=== PATIENT | male | born 1995 | race Caucasian/White ===

== ENCOUNTER 2016-07-28 11:31 | Inpatient (IN) | payer BC, OTHER ==
[2016-07-28 11:45] VITALS: BMI 24.2
--- NOTE | 2016-07-28 13:15 | HP ---
CIWA Score - CIWA Score Nausea/Vomitin-Mild Nausea/No Vomiting Muscle Tremors: 4-Moderate,w/Arms Extend Anxiety: 4-Mod. Anxious/Guarded Agitation: 4-Moderately Restless Paroxysmal Sweats: 3 Orientation: 0-Oriented Tacttile Disturbances: 1-Very Mild Itch/Numbness Auditory Disturbances: 0-None Visual Disturbances: 0-None Headache: 0-None Present CIWA-Ar Total Score: 17 Admission ROS BHS - HPI Chief Complaint: WITHDRAWAL SX. Allergies/Adverse Reactions: Allergies Allergy/AdvReac Type Severity Reaction Status Date / Time No Known Drug Allergies Allergy Verified 07/28/16 12:10 pollen extracts Allergy Verified 07/28/16 12:09 cats Allergy Uncoded 07/28/16 12:10 History of Present Illness: 21 Y/O MAN WITH HX. OF DRUG & ALCOHOL DEPENDENCE IS ADMITTED FOR DETOX. PT. DENIES PREVIOUS DETOX,HE WAS IN REHAB AT [facility] X 2. PT. DENIES SOBRIETY. Exam Limitations: No Limitations - Ebola screening Have you traveled outside of the country in the last 21 days: No Have you had contact with anyone from an Ebola affected area: No Have you been sick,other than usual withdrawal symptoms: No Do you have a fever: No - Review of Systems Constitutional: Diaphoresis EENT: reports: No Symptoms Reported Respiratory: reports: No Symptoms reported Cardiac: reports: No Symptoms Reported GI: reports: Diarrhea, Nausea, Abdominal cramping : reports: Frequency Musculoskeletal: reports: No Symptoms Reported Integumentary: reports: Sweating Neuro: reports: Tremors Endocrine: reports: No Symptoms Reported Hematology: reports: No Symptoms Reported Psychiatric: reports: No Sypmtoms Reported Other Systems: Reviewed and Negative Patient History - Patient Medical History Hx Anemia: No Hx Asthma: No Hx Chronic Obstructive Pulmonary Disease (COPD): No Hx Cancer: No Hx Cardiac Disorders: No Hx Hypertension: No Hx Hypercholesterolemia: No Hx Pacemaker: No HX Cerebrovascular Accident: No Hx Seizures: No Hx Dementia: No Hx Diabetes: No Hx Gastrointestinal Disorders: No Hx Liver Disease: No Hx Genitourinary Disorders: No Hx Sexually Transmitted Disorders: No Hx Renal Disease (ESRD): No Hx Thyroid Disease: No Hx Human Immunodeficiency Virus (HIV): No Hx Hepatitis C: No Hx Depression: Yes (LEXAPRO) Hx Suicide Attempt: No Hx Bipolar Disorder: No Hx Schizophrenia: No - Patient Surgical History Past Surgical History: Yes Hx Orthopedic Surgery: Yes (fx lt wrist 2015) Anesthesia Reaction: No - PPD History Previous Implant?: Yes Documented Results: Negative w/o proof Implanted On Prior [facility] Admission?: No PPD to be Administered?: Yes - Smoking Cessation Smoking history: Current some day smoker Have you smoked in the past 12 months: Yes Hx Chewing Tobacco Use: No Initiated information on smoking cessation: Yes 'Breaking Loose' booklet given: 07/28/16 - Substance & Tx. History Hx Alcohol Use: Yes Hx Substance Use: Yes Substance Use Type: Alcohol, Tranquilizers Hx Substance Use Treatment: Yes (REHAB) - Substances Abused Alcohol Route: Oral Frequency: Daily Amount used: vodka(750ml)/yo reyesels(1liter) Age of first use: 18 Date of Last Use: 08/27/15 Alprazolam (Xanax) Route: Oral Frequency: Daily Amount used: 6-8 mg Age of first use: 18 Date of Last Use: 07/28/16 Family Disease History - Family Disease History Family Disease History: CA: Grandparent (LUNG), Other: Mother (ALCOHOL) Admission Physical Exam [facility] - Vital Signs Vital Signs: Vital Signs - 24 hr 07/28/16 11:43 Temperature 96.4 F L Pulse Rate 84 Respiratory 18 Rate Blood Pressure 142/80 - Physical General Appearance: Yes: Tremorous, Sweating, Anxious HEENTM: Yes: Within Normal Limits Respiratory: Yes: Chest Non-Tender, Lungs Clear, Normal Breath Sounds Neck: Yes: Supple Breast: Yes: Breast Exam Deferred Cardiology: Yes: Regular Rhythm, Regular Rate, S1, S2 Abdominal: Yes: Normal Bowel Sounds, Non Tender, Flat, Soft Genitourinary: Yes: Frequency Back: Yes: Within Normal Limits Musculoskeletal: Yes: Within Normal Limits Extremities: Yes: Tremors Neurological: Yes: Fully Oriented, Alert Integumentary: Yes: Diaphoresis Lymphatic: Yes: Within Normal Limits - Diagnostic (1) Sedative, hypnotic or anxiolytic dependence with withdrawal, uncomplicated Current Visit: Yes Status: Acute (2) Alcohol dependence with uncomplicated withdrawal Current Visit: Yes Status: Acute Cleared for Admission [facility] - Detox or Rehab [facility] Level of Care: Medically Managed Detox Regimen/Protocol: Librium [facility] Breath Alcohol Content Breath Alcohol Content: 0 Urine Drug Screen - Results Drug Screen Negative: No Urine Drug Screen Results: BZO-Benzodiazepines
[2016-07-28] MEDS ORDERED: MENTHOL/PHENOL 1 EACH UD MM PRN (13:24)
[2016-07-28] MEDS ORDERED: NICOTINE POLACRILEX 2 MG GUM BC PRN (13:24)
[2016-07-28] MEDS ORDERED: LOPERAMIDE HCL 2 MG CAPSULE PO PRN (13:24)
[2016-07-28] MEDS ORDERED: hydrOXYzine PAMOATE 50 MG CAPSULE (FP) PO PRN (13:24)
[2016-07-28] MEDS ORDERED: chlordiazePOXIDE HCL 25 MG CAPSULE PO ONE (13:24)
[2016-07-28] MEDS ORDERED: MAGNESIUM CITRATE 300 ML BOTTLE PO PRN (13:24)
[2016-07-28] MEDS ORDERED: IBUPROFEN 400 MG TABLET (FP) PO PRN (13:24)
[2016-07-28] MEDS ORDERED: MAGNESIUM HYDROX 2400MG/30ML ORAL SUSPENSION 30 ML CUP PO PRN (13:24)
[2016-07-28] MEDS ORDERED: P-EPHED 60MG/TRIPROLIDI 2.5MG TABLET PO PRN (13:24)
[2016-07-28] MEDS ORDERED: diphenhydrAMINE HCL 50 MG CAPSULE PO PRN (13:24)
[2016-07-28] MEDS ORDERED: guaiFENesin/D-METHORPHAN HB 10 ML UNIT-DOSE CUPS PO PRN (13:24)
[2016-07-28] MEDS ORDERED: MAG HYDROX/AL HYDROX/SIMETH 30 ML UNIT-DOSE CUP PO PRN (13:24)
[2016-07-28] MEDS ORDERED: ACETAMINOPHEN 325 MG TABLET (FP) PO PRN (13:24)
[2016-07-28] MEDS ORDERED: chlordiazePOXIDE HCL 25 MG CAPSULE PO PRN (13:24)
[2016-07-28] MEDS: NICOTINE 7 MG/24 HOURS TOPICAL PATCH TD SCH (15:07)
[2016-07-28] MEDS: chlordiazePOXIDE HCL 25 MG CAPSULE PO SCH ×2 (17:34→22:09)
[2016-07-28] MEDS: THIAMINE HCL 100 MG TABLET (FP) PO SCH (22:09)
[2016-07-28 22:58] LABS: URINE APPEARANCE SLCLOUDY; URINE BILIRUBIN NEGATIVE (NEGATIVE); URINE BLOOD NEGATIVE (NEGATIVE); URINE COLOR YELLOW; URINE GLUCOSE (UA) NEGATIVE (NEGATIVE); URINE KETONE TRACE (NEGATIVE); URINE LEUK ESTERASE NEGATIVE (NEGATIVE); URINE NITRITE NEGATIVE (NEGATIVE); URINE UROBILINOGEN NEGATIVE E.U./dl (0.2-1.0)
[2016-07-28 23:03] LABS: URINE PROTEIN 1+ (NEGATIVE)
[2016-07-28 23:06] LABS: URINE MUCUS MANY; URINE RBC 1 /hpf (0-3); URINE WBC 5 /hpf (3-5)
[2016-07-29] MEDS: chlordiazePOXIDE HCL 25 MG CAPSULE PO SCH ×4 (05:37→22:12)
[2016-07-29 10:30] LABS: MCHC 34.4 g/dl (32.0-35.9); MEAN CELL VOLUME 90.2 fl (80-96); MEAN PLT VOLUME 7.7 fl (7.5-11.1); PLATELET COUNT 289 K/MM3 (134-434); WHITE BLOOD COUNT 5.2 K/mm3 (4.0-10.0)
[2016-07-29] MEDS: NICOTINE 7 MG/24 HOURS TOPICAL PATCH TD SCH (10:30)
[2016-07-29] MEDS: PRENATAL VITAMINS W/ FOLIC ACID TABLET (FP) PO SCH (10:30)
[2016-07-29 11:10] LABS: ALBUMIN 4.6 g/dl (3.4-5.0); ALK PHOS 80 U/L (45-117); ANION GAP 8 (8-16); BILIRUBIN,TOTAL 0.5 mg/dL (0.2-1.0); CALCIUM 9.5 mg/dL (8.5-10.1); CO2 27 mmol/L (21-32); CREATININE 0.9 mg/dL (0.7-1.3); GLUCOSE,RANDOM 99 mg/dL (74-106); SGOT/AST 22 U/L (15-37); SGPT/ALT 25 U/L (12-78); TOT PROT 7.8 g/dl (6.4-8.2)
--- NOTE | 2016-07-29 14:03 | PN ---
S CIWA - CIWA Score Nausea/Vomitin-No Nausea/No Vomiting Muscle Tremors: 3 Anxiety: 4-Mod. Anxious/Guarded Agitation: 4-Moderately Restless Paroxysmal Sweats: 2 Orientation: 0-Oriented Tacttile Disturbances: 0-None Auditory Disturbances: 0-None Visual Disturbances: 0-None Headache: 0-None Present CIWA-Ar Total Score: 13 BHS Progress Note (SOAP) Subjective: SWEATING,INTERRUPTED SLEEP,ANXIETY,TREMORS,RESTLESS. Objective: 07/29/16 14:02 Vital Signs - 8 hr 07/29/16 07/29/16 06:17 10:35 Temperature 96.5 F L 97.0 F L Pulse Rate 80 69 Respiratory 16 18 Rate Blood Pressure 116/72 123/73 Laboratory Tests 07/28/16 07/29/16 07/29/16 22:45 07:15 07:15 WBC 5.2 RBC 4.97 Hgb 15.4 Hct 44.8 MCV 90.2 MCHC 34.4 RDW 13.0 Plt Count 289 MPV 7.7 Sodium 138 Potassium 4.0 Chloride 103 Carbon Dioxide 27 Anion Gap 8 BUN 7 Creatinine 0.9 Creat Clearance w eGFR > 60 Random Glucose 99 Calcium 9.5 Total Bilirubin 0.5 AST 22 ALT 25 Alkaline Phosphatase 80 Total Protein 7.8 Albumin 4.6 Urine Color Yellow Urine Appearance Slcloudy Urine pH 6.0 Ur Specific [place] 1.031 Urine Protein 1+ H Urine Glucose (UA) Negative Urine Ketones Trace H Urine Blood Negative Urine Nitrite Negative Urine Bilirubin Negative Urine Urobilinogen Negative Ur Leukocyte Esterase Negative Urine RBC 1 Urine WBC 5 Ur Epithelial Cells Rare Urine Mucus Many LABS NOTED Assessment: 07/29/16 14:03 WITHDRAWAL SX. Plan: CONTINUE DETOX
--- NOTE | 2016-07-29 19:59 | CONSULT ---
[facility] Psychiatric Consult - Data Date of interview: 07/29/16 Admission source: [facility] Identifying data: First admission to [facility] for this 21 y/o male seeking detox treatment on for alcohol and benzodiazepine depenedence.Patient is single without children,currently undomiciled,disabled ( legally blind due to retinitis pigmentosa) and supported on SSI benefits. Substance Abuse History: - Smoking Cessation. Smoking history: Current some day smoker. Have you smoked in the past 12 months: Yes. Hx Chewing Tobacco Use : No. Initiated information on smoking cessation: Yes. 'Breaking Loose' booklet given: 07/28/16. - Substance & Tx. History. Hx Alcohol Use: Yes. Hx Substance Use: Yes. Substance Use Type: Alcohol, Tranquilizers. Hx Substance Use Treatment: Yes (REHAB). - Substances Abused. Alcohol. Route: Oral. Frequency: Daily. Amount used: vodka(750ml)/yo arreola(1liter). Age of first use: 18. Date of Last Use: 08/27/15. Alprazolam (Xanax). Route: Oral. Frequency: Daily. Amount used: 6-8 mg. Age of first use: 18. Date of Last Use: 07/28/16. Conrirmed by patient. Medical History: Significant for retinitis pigmentosa (legally blind). Psychiatric History: No reported history of psychiatric hospitalizations.Patient sees a psychiatrist at the [facility].He is managed with lexapro 20 mg /day for MDD and adderall 40 mg/day for ADD (not taken for one month).Mr Briceño denies history of suicide attempts. Physical/Sexual Abuse/Trauma History: Patient denies history of sexual abuse. Mental Status Exam - Mental Status Exam Alert and Oriented to: Time, Place, Person Cognitive Function: Good Patient Appearance: Well Groomed Mood: Hopeful, Euthymic Affect: Appropriate, Normal Range Patient Behavior: Fatigued, Appropriate, Cooperative Speech Pattern: Clear, Appropriate Voice Loudness: Normal Thought Process: Goal Oriented Thought Disorder: Not Present Hallucinations: Denies Suicidal Ideation: Denies Homicidal Ideation: Denies Insight/Judgement: Poor Sleep: Well Appetite: Good Muscle strength/Tone: Normal Gait/Station: Normal Psychiatric Findings - Problem List ([place] 1, 2,3) (1) Alcohol dependence with uncomplicated withdrawal Current Visit: Yes Status: Acute (2) Sedative, hypnotic or anxiolytic dependence with withdrawal, uncomplicated Current Visit: Yes Status: Acute (3) MDD (major depressive disorder) Current Visit: Yes Status: Chronic (4) ADD (attention deficit hyperactivity disorder, inattentive type) Current Visit: Yes Status: Chronic (5) Retinitis pigmentosa Current Visit: Yes Status: Chronic - Initial Treatment Plan Initial Treatment Plan: Psychoeducation.Detoxification.Lexapro 10 mg po daily.Side effects/benefits explained to patient.He declines to take adderall but agrees to continue on lexapro.Observation.Fall precautions.Pharmacy claims reviewed (discrepancy noted:patient endorses lexapro but he got script for sertraline on 06/24/2016 @ [facility] # [id number]).
[2016-07-29] MEDS: THIAMINE HCL 100 MG TABLET (FP) PO SCH (22:13)
[2016-07-30] MEDS: chlordiazePOXIDE HCL 25 MG CAPSULE PO SCH ×2 (05:31→10:13)
[2016-07-30] MEDS ORDERED: ESCITALOPRAM OXALATE 10 MG TABLET (FP) PO SCH (10:00)
[2016-07-30] MEDS: ESCITALOPRAM OXALATE 10 MG TABLET (FP) PO SCH (10:13)
[2016-07-30] MEDS: PRENATAL VITAMINS W/ FOLIC ACID TABLET (FP) PO SCH (10:13)
[2016-07-30] MEDS: NICOTINE 7 MG/24 HOURS TOPICAL PATCH TD SCH (10:14)
--- NOTE | 2016-07-30 10:18 | PN ---
[facility] CIWA - CIWA Score Nausea/Vomitin-No Nausea/No Vomiting Muscle Tremors: 3 Anxiety: 4-Mod. Anxious/Guarded Agitation: 4-Moderately Restless Paroxysmal Sweats: 3 Orientation: 0-Oriented Tacttile Disturbances: 0-None Auditory Disturbances: 0-None Visual Disturbances: 0-None Headache: 0-None Present CIWA-Ar Total Score: 14 BHS Progress Note (SOAP) Subjective: ANXIETY,TREMORS,SWEATING,INTERRUPTED SLEEP,RESTLESS. Objective: 07/30/16 10:17 Vital Signs - 8 hr 07/30/16 06:41 Temperature 98 F Pulse Rate 93 H Respiratory 18 Rate Blood Pressure 126/84 Laboratory Last Values WBC 5.2 K/mm3 (4.0-10.0) 07/29/16 07:15 RBC 4.97 M/mm3 (4.00-5.60) 07/29/16 07:15 Hgb 15.4 GM/dL (11.7-16.9) 07/29/16 07:15 Hct 44.8 % (35.4-49) 07/29/16 07:15 MCV 90.2 fl (80-96) 07/29/16 07:15 MCHC 34.4 g/dl (32.0-35.9) 07/29/16 07:15 RDW 13.0 % (11.9-15.9) 07/29/16 07:15 Plt Count 289 K/MM3 (134-434) 07/29/16 07:15 MPV 7.7 fl (7.5-11.1) 07/29/16 07:15 Sodium 138 mmol/L (136-145) 07/29/16 07:15 Potassium 4.0 mmol/L (3.5-5.1) 07/29/16 07:15 Chloride 103 mmol/L (98-107) 07/29/16 07:15 Carbon Dioxide 27 mmol/L (21-32) 07/29/16 07:15 Anion Gap 8 (8-16) 07/29/16 07:15 BUN 7 mg/dL (7-18) 07/29/16 07:15 Creatinine 0.9 mg/dL (0.7-1.3) 07/29/16 07:15 Creat Clearance w eGFR > 60 (>60) 07/29/16 07:15 Random Glucose 99 mg/dL (74-106) 07/29/16 07:15 Calcium 9.5 mg/dL (8.5-10.1) 07/29/16 07:15 Total Bilirubin 0.5 mg/dL (0.2-1.0) 07/29/16 07:15 AST 22 U/L (15-37) 07/29/16 07:15 ALT 25 U/L (12-78) 07/29/16 07:15 Alkaline Phosphatase 80 U/L (45-117) 07/29/16 07:15 Total Protein 7.8 g/dl (6.4-8.2) 07/29/16 07:15 Albumin 4.6 g/dl (3.4-5.0) 07/29/16 07:15 Urine Color Yellow 07/28/16 22:45 Urine Appearance Slcloudy 07/28/16 22:45 Urine pH 6.0 (5.0-8.0) 07/28/16 22:45 Ur Specific [place] 1.031 (1.001-1.035) 07/28/16 22:45 Urine Protein 1+ (NEGATIVE) H 07/28/16 22:45 Urine Glucose (UA) Negative (NEGATIVE) 07/28/16 22:45 Urine Ketones Trace (NEGATIVE) H 07/28/16 22:45 Urine Blood Negative (NEGATIVE) 07/28/16 22:45 Urine Nitrite Negative (NEGATIVE) 07/28/16 22:45 Urine Bilirubin Negative (NEGATIVE) 07/28/16 22:45 Urine Urobilinogen Negative E.U./dl (0.2-1.0) 07/28/16 22:45 Ur Leukocyte Esterase Negative (NEGATIVE) 07/28/16 22:45 Urine RBC 1 /hpf (0-3) 07/28/16 22:45 Urine WBC 5 /hpf (3-5) 07/28/16 22:45 Ur Epithelial Cells Rare /hpf (FEW) 07/28/16 22:45 Urine Mucus Many 07/28/16 22:45 RPR Titer Nonreactive (NONREACTIVE) 07/29/16 07:15 LABS NOTED Assessment: 07/30/16 10:18 WITHDRAWAL SX. Plan: CONTINUE DETOX
[2016-07-30] MEDS: chlordiazePOXIDE 5 MG CAPSULE PO SCH ×2 (17:27→22:23)
[2016-07-30] MEDS: THIAMINE HCL 100 MG TABLET (FP) PO SCH (22:23)
[2016-07-30] MEDS: ZOLPIDEM TARTRATE 5 MG TABLET PO PRN (22:23)
[2016-07-31] MEDS: chlordiazePOXIDE 5 MG CAPSULE PO SCH ×2 (05:57→10:03)
[2016-07-31] MEDS: NICOTINE 7 MG/24 HOURS TOPICAL PATCH TD SCH (10:03)
[2016-07-31] MEDS: PRENATAL VITAMINS W/ FOLIC ACID TABLET (FP) PO SCH (10:03)
[2016-07-31] MEDS: ESCITALOPRAM OXALATE 10 MG TABLET (FP) PO SCH (10:03)
--- NOTE | 2016-07-31 10:27 | PN ---
S Progress Note (SOAP) Subjective: ALERT,IRRITABLE,ANXIOUS,INTERRUPTED SLEEP, Objective: 07/31/16 10:26 Vital Signs Temperature 97.9 F 07/31/16 09:41 Pulse Rate 77 07/31/16 09:41 Respiratory Rate 18 07/31/16 09:41 Blood Pressure 95/51 07/31/16 09:41 O2 Sat by Pulse Oximetry (%) Assessment: 07/31/16 10:26 WITHDRAWAL SYMPTOM Plan: CONTINUE DETOX,DISCHARGE IN AM
[2016-07-31] MEDS: chlordiazePOXIDE HCL 10 MG CAPSULE PO SCH ×2 (17:47→22:21)
[2016-07-31] MEDS: ZOLPIDEM TARTRATE 5 MG TABLET PO PRN (22:22)
[2016-07-31] MEDS: THIAMINE HCL 100 MG TABLET (FP) PO SCH (22:23)
[2016-08-01] MEDS: chlordiazePOXIDE HCL 10 MG CAPSULE PO SCH ×2 (05:45→10:17)
[2016-08-01 09:47] VITALS: BP 135/79; PULSE 75; TEMP 98.5
[2016-08-01] MEDS: PRENATAL VITAMINS W/ FOLIC ACID TABLET (FP) PO SCH (10:17)
--- NOTE | 2016-08-01 10:17 | DS ---
[facility] Detox Discharge Summary Admission Date: 07/28/16 Discharge Date: 08/01/16 - History Present History: Alcohol Dependence, Sedative Dependence Pertinent Past History: RETINITIS PIGMENTOSA - Physical Exam Results Vital Signs: Vital Signs Temperature 98.5 F 08/01/16 09:46 Pulse Rate 75 08/01/16 09:46 Respiratory Rate 18 08/01/16 09:46 Blood Pressure 135/79 08/01/16 09:46 O2 Sat by Pulse Oximetry (%) Pertinent Admission Physical Exam Findings: WITHDRAWAL SX. Laboratory Last Values WBC 5.2 K/mm3 (4.0-10.0) 07/29/16 07:15 RBC 4.97 M/mm3 (4.00-5.60) 07/29/16 07:15 Hgb 15.4 GM/dL (11.7-16.9) 07/29/16 07:15 Hct 44.8 % (35.4-49) 07/29/16 07:15 MCV 90.2 fl (80-96) 07/29/16 07:15 MCHC 34.4 g/dl (32.0-35.9) 07/29/16 07:15 RDW 13.0 % (11.9-15.9) 07/29/16 07:15 Plt Count 289 K/MM3 (134-434) 07/29/16 07:15 MPV 7.7 fl (7.5-11.1) 07/29/16 07:15 Sodium 138 mmol/L (136-145) 07/29/16 07:15 Potassium 4.0 mmol/L (3.5-5.1) 07/29/16 07:15 Chloride 103 mmol/L (98-107) 07/29/16 07:15 Carbon Dioxide 27 mmol/L (21-32) 07/29/16 07:15 Anion Gap 8 (8-16) 07/29/16 07:15 BUN 7 mg/dL (7-18) 07/29/16 07:15 Creatinine 0.9 mg/dL (0.7-1.3) 07/29/16 07:15 Creat Clearance w eGFR > 60 (>60) 07/29/16 07:15 Random Glucose 99 mg/dL (74-106) 07/29/16 07:15 Calcium 9.5 mg/dL (8.5-10.1) 07/29/16 07:15 Total Bilirubin 0.5 mg/dL (0.2-1.0) 07/29/16 07:15 AST 22 U/L (15-37) 07/29/16 07:15 ALT 25 U/L (12-78) 07/29/16 07:15 Alkaline Phosphatase 80 U/L (45-117) 07/29/16 07:15 Total Protein 7.8 g/dl (6.4-8.2) 07/29/16 07:15 Albumin 4.6 g/dl (3.4-5.0) 07/29/16 07:15 Urine Color Yellow 07/28/16 22:45 Urine Appearance Slcloudy 07/28/16 22:45 Urine pH 6.0 (5.0-8.0) 07/28/16 22:45 Ur Specific [place] 1.031 (1.001-1.035) 07/28/16 22:45 Urine Protein 1+ (NEGATIVE) H 07/28/16 22:45 Urine Glucose (UA) Negative (NEGATIVE) 07/28/16 22:45 Urine Ketones Trace (NEGATIVE) H 07/28/16 22:45 Urine Blood Negative (NEGATIVE) 07/28/16 22:45 Urine Nitrite Negative (NEGATIVE) 07/28/16 22:45 Urine Bilirubin Negative (NEGATIVE) 07/28/16 22:45 Urine Urobilinogen Negative E.U./dl (0.2-1.0) 07/28/16 22:45 Ur Leukocyte Esterase Negative (NEGATIVE) 07/28/16 22:45 Urine RBC 1 /hpf (0-3) 07/28/16 22:45 Urine WBC 5 /hpf (3-5) 07/28/16 22:45 Ur Epithelial Cells Rare /hpf (FEW) 07/28/16 22:45 Urine Mucus Many 07/28/16 22:45 RPR Titer Nonreactive (NONREACTIVE) 07/29/16 07:15 LABS NOTED - Treatment Hospital Course: Detox Protocol Followed, Detoxed Safely, Responded well, Discharged Condition Good, Rehab Referral Accepted - Medication Discharge Medications: Ambulatory Orders Alprazolam [Xanax] 1 mg PO TID 07/28/16 Dextroamphetamine/Amphetamine [Adderall 10 mg Tablet] 40 mg PO DAILY 07/28/16 Escitalopram Oxalate [Lexapro -] 20 mg PO DAILY 07/28/16 Escitalopram Oxalate [Lexapro -] 20 mg PO DAILY #30 tablet 07/31/16 - Diagnosis (1) Sedative, hypnotic or anxiolytic dependence with withdrawal, uncomplicated Current Visit: Yes Status: Acute (2) Alcohol dependence with uncomplicated withdrawal Current Visit: Yes Status: Acute (3) ADD (attention deficit hyperactivity disorder, inattentive type) Current Visit: Yes Status: Chronic (4) MDD (major depressive disorder) Current Visit: Yes Status: Chronic (5) Retinitis pigmentosa Current Visit: Yes Status: Chronic
[2016-08-01] MEDS: NICOTINE 7 MG/24 HOURS TOPICAL PATCH TD SCH (10:18)
[2016-08-01] MEDS: ESCITALOPRAM OXALATE 10 MG TABLET (FP) PO SCH (10:18)
== END 2016-08-01 16:56 | disposition other institution (70) | DRG 897 ==
LOC: YASAS 11:31 → Y3N 13:30
PROVIDERS: ADMIT Internal Medicine; ATTEND Internal Medicine
PROC: HZ2ZZZZ Detoxification Services for Substance Abuse Treatment (ICD-10-PCS; principal; 2016-07-28)
DX: F13.230 Sedative, hypnotic or anxiolytic dependence with withdrawal, uncomplicated (principal); F33.9 Major depressive disorder, recurrent, unspecified; F10.230 Alcohol dependence with withdrawal, uncomplicated; F17.210 Nicotine dependence, cigarettes, uncomplicated; F98.8 Other specified behavioral and emotional disorders with onset usually occurring in childhood and adolescence; H54.8 Legal blindness, as defined in USA; H35.52 Pigmentary retinal dystrophy
CPT/HCPCS: 36415; 80053; 81003; 81015; 85027; 86593; 93005; 93010

== ENCOUNTER 2016-08-01 17:24 | Inpatient (IN) | payer BC, OTHER ==
[2016-08-01] MEDS ORDERED: hydrOXYzine PAMOATE 50 MG CAPSULE (FP) PO PRN (18:12)
[2016-08-01] MEDS ORDERED: guaiFENesin/D-METHORPHAN HB 10 ML UNIT-DOSE CUPS PO PRN (18:12)
[2016-08-01] MEDS ORDERED: MAGNESIUM CITRATE 300 ML BOTTLE PO PRN (18:12)
[2016-08-01] MEDS ORDERED: ACETAMINOPHEN 325 MG TABLET (FP) PO PRN (18:12)
[2016-08-01] MEDS ORDERED: NICOTINE POLACRILEX 2 MG GUM BUC PRN (18:12)
[2016-08-01] MEDS ORDERED: MAGNESIUM HYDROX 2400MG/30ML ORAL SUSPENSION 30 ML CUP PO PRN (18:12)
[2016-08-01] MEDS ORDERED: NICOTINE 14 MG/24 HOURS TOPICAL PATCH TD PRN (18:12)
[2016-08-01] MEDS ORDERED: MAG HYDROX/AL HYDROX/SIMETH 30 ML UNIT-DOSE CUP PO PRN (18:12)
[2016-08-01] MEDS ORDERED: IBUPROFEN 400 MG TABLET (FP) PO PRN (18:12)
[2016-08-01] MEDS ORDERED: MENTHOL/PHENOL 1 EACH UD MM PRN (18:12)
[2016-08-01] MEDS ORDERED: LOPERAMIDE HCL 2 MG CAPSULE PO PRN (18:12)
[2016-08-01] MEDS ORDERED: P-EPHED 60MG/TRIPROLIDI 2.5MG TABLET PO PRN (18:12)
--- NOTE | 2016-08-01 18:12 | HP ---
[facility] Assess/Revision - Admission History Admitted to Rehab from: [facility] Date of Admission to Rehab: 08/01/16 - Findings Detox History & Physical reviewed: Yes Concur with findings: Yes Comments/Additional Findings: TRANSFERRED FROM DETOX TO REHAB ADMISSION PER PROTOCOL
[2016-08-01] MEDS: THIAMINE HCL 100 MG TABLET (FP) PO SCH (22:20)
[2016-08-02] MEDS: PRENATAL VITAMINS W/ FOLIC ACID TABLET (FP) PO SCH (10:29)
--- NOTE | 2016-08-02 15:09 | HP ---
Psychiatrist Admission - Data Date of interview: 08/02/16 Admission source: [facility] Identifying data: This is the first [facility] admission for this 21 yeas old single male, Unemployed on SSI, homeless Medical History: Significant for history of Retinitis pigmentosa and S/P fracture left wrist. Smokes an average of one cigarettes daily Psychiatric History: Reports that his first psychiatric contact was in 3rd grade. He was then diadnosed for ADHd and prescribed Concerta which he took for a year. He later on saw a psychiatrist in [place] who in addition for ADHD diagnosed him with SHAHID and prescribed him Xanax, Adderall and Serquel. Since Apr 2016, he has been receiving his psychiatric care at the [facility] and he is prescribed Lexapro 20 mg po daily and Adderall 40 mg po daily. He saw Dr Zavala in detox and was continued on Lexapro. At present, reports feeling mildly anxious and experiencing difficulty to sleep Physical/Sexual Abuse/Trauma History: Denies history of physical, sexual abuse as well as DV relationship Vital Signs: Vital Signs - 24 hr 08/02/16 08/02/16 03:30 07:09 Temperature 97.3 F L Pulse Rate 59 L Respiratory 18 18 Rate Blood Pressure 126/76 Allergies/Adverse Reactions: Allergies Allergy/AdvReac Type Severity Reaction Status Date / Time No Known Drug Allergies Allergy Verified 08/01/16 17:06 pollen extracts Allergy Verified 08/01/16 17:06 cats Allergy Uncoded 08/01/16 17:06 Date of last physical exam: 07/28/16 Concur with the findings of this exam: Yes - Substance Abuse/Tx History Hx Alcohol Use: Yes Hx Substance Use: Yes Substance Use Type: Alcohol (Started drinking alcohol at age 18, consumes 750ml of vodka or one liter of yo arreola daily. Last drink on 07/26/16), Tranquilizers (Started using xanax at age 18, consumes 6-8 mg daily. Last used on 07/21/16) Hx Substance Use Treatment: No - Admission Criteria Poor recovery environment: Yes Comorbidities: Yes Lacks judgement: Yes Mental Status Exam - Mental Status Exam Alert and Oriented to: Time, Place, Person Cognitive Function: Fair Patient Appearance: Well Groomed Mood: Anxious Affect: Appropriate Patient Behavior: Cooperative Speech Pattern: Clear Voice Loudness: Normal Thought Process: Intact Thought Disorder: Not Present Hallucinations: Denies Suicidal Ideation: Denies Homicidal Ideation: Denies Insight/Judgement: Fair Sleep: Poorly Appetite: Good Muscle strength/Tone: Normal Gait/Station: Normal Psychiatric Findings - Problem List ([place] 1, 2,3) (1) Alcohol dependence with uncomplicated withdrawal Current Visit: No Status: Acute (2) Sedative, hypnotic or anxiolytic dependence with withdrawal, uncomplicated Current Visit: No Status: Acute (3) Nicotine dependence Current Visit: Yes Status: Acute (4) ADHD (attention deficit hyperactivity disorder) Current Visit: Yes Status: Acute (5) MDD (major depressive disorder) Current Visit: No Status: Chronic (6) SHAHID (generalized anxiety disorder) Current Visit: Yes Status: Acute (7) Retinitis pigmentosa Current Visit: No Status: Chronic - Initial Treatment Plan Initial Treatment Plan: 1) Continue Lexapro 20 mg po daily. 2) Start Trazadone 100 mg po HS. 3) Monitor progress
[2016-08-02] MEDS: THIAMINE HCL 100 MG TABLET (FP) PO SCH (22:54)
[2016-08-02] MEDS: traZODone HCL 100 MG TABLET (FP) PO SCH (22:54)
[2016-08-03] MEDS: PRENATAL VITAMINS W/ FOLIC ACID TABLET (FP) PO SCH (10:29)
[2016-08-03] MEDS: ESCITALOPRAM OXALATE 20 MG TABLET (FP) PO SCH (10:29)
[2016-08-03] MEDS: traZODone HCL 100 MG TABLET (FP) PO SCH (22:30)
[2016-08-03] MEDS: THIAMINE HCL 100 MG TABLET (FP) PO SCH (22:30)
[2016-08-04] MEDS: ESCITALOPRAM OXALATE 20 MG TABLET (FP) PO SCH (10:44)
[2016-08-04] MEDS: PRENATAL VITAMINS W/ FOLIC ACID TABLET (FP) PO SCH (10:45)
[2016-08-04] MEDS: traZODone HCL 100 MG TABLET (FP) PO SCH (21:11)
[2016-08-04] MEDS: THIAMINE HCL 100 MG TABLET (FP) PO SCH (21:11)
[2016-08-05] MEDS: PRENATAL VITAMINS W/ FOLIC ACID TABLET (FP) PO SCH (09:33)
[2016-08-05] MEDS: ESCITALOPRAM OXALATE 20 MG TABLET (FP) PO SCH (09:33)
[2016-08-05] MEDS: THIAMINE HCL 100 MG TABLET (FP) PO SCH (22:09)
[2016-08-05] MEDS: traZODone HCL 100 MG TABLET (FP) PO SCH (22:09)
[2016-08-06] MEDS: PRENATAL VITAMINS W/ FOLIC ACID TABLET (FP) PO SCH (10:22)
[2016-08-06] MEDS: ESCITALOPRAM OXALATE 20 MG TABLET (FP) PO SCH (10:22)
--- NOTE | 2016-08-06 14:58 | PN ---
Psychiatric Progress Note Vital Signs: Vital Signs Period Temp Pulse Resp BP Sys/[place] Pulse Ox Last 24 Hr 97.2 F 54 18-18 139/71 Date of Session: 08/06/16 Chief Complaint:: "I am anxious" HPI: Patient is addressing alcohol, sedative dependence comorbid MDD, SHAHID, ADD. ROS: WNL Current Medications: Active Medications Generic Name Dose Route Start Last Admin Trade Name Freq PRN Reason Stop Dose Admin Acetaminophen 650 mg 08/01/16 18:12 Tylenol - PO Q4H PRN FEVER OR PAIN Al Hydroxide/Mg Hydroxide 30 ml 08/01/16 18:12 Mylanta Oral Suspension - PO Q6H PRN DYSPEPSIA Diphenhydramine HCl 50 mg 08/01/16 18:12 Benadryl - PO HSMR1 PRN FOR ITCHING Escitalopram Oxalate 20 mg 08/03/16 10:00 08/06/16 10:22 Lexapro - PO 20 mg DAILY LEXI Administration Eucalyptus/Menthol/Phenol/Sorbitol 1 each 08/01/16 18:12 08/05/16 14:50 Cepastat Lozenge - MM 1 each Q4H PRN Administration SORE THROAT Guaifenesin 10 ml 08/01/16 18:12 08/05/16 14:49 Robitussin Dm - PO 10 ml Q6H PRN Administration COUGH Hydroxyzine Pamoate 50 mg 08/01/16 18:12 Vistaril - PO Q4H PRN AGITATION Ibuprofen 400 mg 08/01/16 18:12 Motrin - PO Q6H PRN PAIN Loperamide HCl 4 mg 08/01/16 18:12 Imodium - PO Q6H PRN DIARRHEA Magnesium Hydroxide 30 ml 08/01/16 18:12 Milk Of Magnesia - PO DAILY PRN CONSTIPATION Nicotine 14 mg 08/01/16 18:12 Nicoderm Patch - TD DAILY PRN WITHDRAWAL(CONT SUBST) Nicotine Polacrilex 2 mg 08/01/16 18:12 Nicorette Gum - BUC Q2H PRN NICOTINE REPLACEMENT RX Multivit/Folic Acid/Iron 1 tab 08/02/16 10:00 08/06/16 10:22 Vitamins ([facility]) - PO 1 tab DAILY LEXI Administration Pseudoephedrine/Triprolidine 1 combo 08/01/16 18:12 Actifed - PO TID PRN NASAL CONGESTION Thiamine HCl 100 mg 08/01/16 22:00 08/05/16 22:09 Vitamin B1 - PO Not Given HS LEXI Trazodone HCl 150 mg 08/06/16 22:00 Desyrel - PO HS LEXI Medication(s) Change(s): increase Trazodone 150 mg po hs Current Side Effect: No Lab tests ordered: No Lab tests reviewed: Yes Provider note:: Reviewed the chart, 's admission note apprecaiated, met with the patient who reports that he is very anxious, depressed, unable to sleep and gets more anxious at nights. States was under the care of private psychiatrist who put him on Xanax and later he develop tolerance and was taking 4 - 6 mg daily. Patient feels the Trazodone partially effective and needs dosge adjustment. Reviewed his current medications,psycheducation provided , discussed indications and properties of each, will increase to 150 mg, continue to monitor progress. Total face to face time:: 35 Mental Status Exam - Mental Status Exam Alert and Oriented to: Time, Place, Person Cognitive Function: Good Patient Appearance: Well Groomed Mood: Sad, Anxious Affect: Appropriate, Mood Congruent Patient Behavior: Appropriate, Cooperative Speech Pattern: Appropriate Voice Loudness: Normal Thought Process: Intact, Goal Oriented Thought Disorder: Not Present Hallucinations: Denies Suicidal Ideation: Denies Homicidal Ideation: Denies Insight/Judgement: Fair Sleep: Poorly, Difficulty falling asleep Appetite: Good Muscle strength/Tone: Normal Gait/Station: Normal Psychiatric Treatment Plan - Problem List (1) ADHD (attention deficit hyperactivity disorder) Current Visit: Yes (2) SHAHID (generalized anxiety disorder) Current Visit: Yes (3) Nicotine dependence Current Visit: Yes (4) ADD (attention deficit hyperactivity disorder, inattentive type) Current Visit: No (5) MDD (major depressive disorder) Current Visit: No (6) Retinitis pigmentosa Current Visit: No
[2016-08-06] MEDS: THIAMINE HCL 100 MG TABLET (FP) PO SCH (21:49)
[2016-08-06] MEDS: traZODone HCL 50 MG TABLET (FP) PO SCH (21:49)
[2016-08-06] MEDS: diphenhydrAMINE HCL 50 MG CAPSULE PO PRN (21:49)
[2016-08-07] MEDS: ESCITALOPRAM OXALATE 20 MG TABLET (FP) PO SCH (09:47)
[2016-08-07] MEDS: PRENATAL VITAMINS W/ FOLIC ACID TABLET (FP) PO SCH (09:47)
[2016-08-07] MEDS: THIAMINE HCL 100 MG TABLET (FP) PO SCH (22:19)
[2016-08-07] MEDS: traZODone HCL 50 MG TABLET (FP) PO SCH (22:19)
[2016-08-08] MEDS: PRENATAL VITAMINS W/ FOLIC ACID TABLET (FP) PO SCH (09:45)
[2016-08-08] MEDS: ESCITALOPRAM OXALATE 20 MG TABLET (FP) PO SCH (09:45)
[2016-08-08] MEDS: THIAMINE HCL 100 MG TABLET (FP) PO SCH (21:34)
[2016-08-08] MEDS: traZODone HCL 50 MG TABLET (FP) PO SCH (21:35)
[2016-08-08] MEDS: diphenhydrAMINE HCL 50 MG CAPSULE PO PRN (21:35)
[2016-08-09] MEDS: ESCITALOPRAM OXALATE 20 MG TABLET (FP) PO SCH (10:03)
[2016-08-09] MEDS: PRENATAL VITAMINS W/ FOLIC ACID TABLET (FP) PO SCH (10:03)
[2016-08-09] MEDS: THIAMINE HCL 100 MG TABLET (FP) PO SCH (21:16)
[2016-08-09] MEDS: traZODone HCL 50 MG TABLET (FP) PO SCH (21:17)
[2016-08-10] MEDS: ESCITALOPRAM OXALATE 20 MG TABLET (FP) PO SCH (10:04)
[2016-08-10] MEDS: PRENATAL VITAMINS W/ FOLIC ACID TABLET (FP) PO SCH (10:04)
[2016-08-10] MEDS: THIAMINE HCL 100 MG TABLET (FP) PO SCH (21:14)
[2016-08-10] MEDS: traZODone HCL 50 MG TABLET (FP) PO SCH (21:15)
[2016-08-11] MEDS: PRENATAL VITAMINS W/ FOLIC ACID TABLET (FP) PO SCH (10:30)
[2016-08-11] MEDS: ESCITALOPRAM OXALATE 20 MG TABLET (FP) PO SCH (10:31)
[2016-08-11] MEDS: THIAMINE HCL 100 MG TABLET (FP) PO SCH (21:06)
[2016-08-11] MEDS: traZODone HCL 50 MG TABLET (FP) PO SCH (21:06)
[2016-08-12] MEDS: PRENATAL VITAMINS W/ FOLIC ACID TABLET (FP) PO SCH (10:24)
[2016-08-12] MEDS: ESCITALOPRAM OXALATE 20 MG TABLET (FP) PO SCH (10:24)
[2016-08-12] MEDS: traZODone HCL 50 MG TABLET (FP) PO SCH (21:13)
[2016-08-12] MEDS: THIAMINE HCL 100 MG TABLET (FP) PO SCH (21:13)
[2016-08-13] MEDS: PRENATAL VITAMINS W/ FOLIC ACID TABLET (FP) PO SCH (10:53)
[2016-08-13] MEDS: ESCITALOPRAM OXALATE 20 MG TABLET (FP) PO SCH (10:53)
[2016-08-13] MEDS: THIAMINE HCL 100 MG TABLET (FP) PO SCH (21:51)
[2016-08-13] MEDS: traZODone HCL 50 MG TABLET (FP) PO SCH ×2 (21:51→21:52)
[2016-08-14] MEDS: ESCITALOPRAM OXALATE 20 MG TABLET (FP) PO SCH (10:31)
[2016-08-14] MEDS: PRENATAL VITAMINS W/ FOLIC ACID TABLET (FP) PO SCH (10:31)
[2016-08-14] MEDS: THIAMINE HCL 100 MG TABLET (FP) PO SCH (21:32)
[2016-08-14] MEDS: traZODone HCL 50 MG TABLET (FP) PO SCH (21:32)
[2016-08-15] MEDS: ESCITALOPRAM OXALATE 20 MG TABLET (FP) PO SCH (10:40)
[2016-08-15] MEDS: PRENATAL VITAMINS W/ FOLIC ACID TABLET (FP) PO SCH (10:40)
[2016-08-15] MEDS: traZODone HCL 50 MG TABLET (FP) PO SCH (21:27)
[2016-08-15] MEDS: THIAMINE HCL 100 MG TABLET (FP) PO SCH (21:27)
[2016-08-16] MEDS: PRENATAL VITAMINS W/ FOLIC ACID TABLET (FP) PO SCH (09:55)
[2016-08-16] MEDS: ESCITALOPRAM OXALATE 20 MG TABLET (FP) PO SCH (09:55)
--- NOTE | 2016-08-16 14:02 | PN ---
Psychiatric Progress Note Vital Signs: Vital Signs Period Temp Pulse Resp BP Sys/Zamora Pulse Ox Last 24 Hr 97.2 F 94 18-18 120/68 Date of Session: 08/16/16 Chief Complaint:: progress update HPI: Patient is addressing alcohol, sedative dependence comorbid MDD, SHAHID, ADD. ROS: WNL Current Medications: Active Medications Generic Name Dose Route Start Last Admin Trade Name Freq PRN Reason Stop Dose Admin Acetaminophen 650 mg 08/01/16 18:12 Tylenol - PO Q4H PRN FEVER OR PAIN Al Hydroxide/Mg Hydroxide 30 ml 08/01/16 18:12 Mylanta Oral Suspension - PO Q6H PRN DYSPEPSIA Diphenhydramine HCl 50 mg 08/01/16 18:12 08/08/16 21:35 Benadryl - PO 50 mg HSMR1 PRN Administration FOR ITCHING Escitalopram Oxalate 20 mg 08/03/16 10:00 08/16/16 09:55 Lexapro - PO 20 mg DAILY LEXI Administration Eucalyptus/Menthol/Phenol/Sorbitol 1 each 08/01/16 18:12 08/05/16 14:50 Cepastat Lozenge - MM 1 each Q4H PRN Administration SORE THROAT Guaifenesin 10 ml 08/01/16 18:12 08/05/16 14:49 Robitussin Dm - PO 10 ml Q6H PRN Administration COUGH Hydroxyzine Pamoate 50 mg 08/01/16 18:12 Vistaril - PO Q4H PRN AGITATION Ibuprofen 400 mg 08/01/16 18:12 Motrin - PO Q6H PRN PAIN Loperamide HCl 4 mg 08/01/16 18:12 Imodium - PO Q6H PRN DIARRHEA Magnesium Hydroxide 30 ml 08/01/16 18:12 Milk Of Magnesia - PO DAILY PRN CONSTIPATION Nicotine 14 mg 08/01/16 18:12 Nicoderm Patch - TD DAILY PRN WITHDRAWAL(CONT SUBST) Nicotine Polacrilex 2 mg 08/01/16 18:12 Nicorette Gum - BUC Q2H PRN NICOTINE REPLACEMENT RX Multivit/Folic Acid/Iron 1 tab 08/02/16 10:00 08/16/16 09:55 Vitamins (Sjr) - PO 1 tab DAILY LEXI Administration Pseudoephedrine/Triprolidine 1 combo 08/01/16 18:12 Actifed - PO TID PRN NASAL CONGESTION Thiamine HCl 100 mg 08/01/16 22:00 08/15/16 21:27 Vitamin B1 - PO 100 mg HS LXEI Administration Trazodone HCl 150 mg 08/06/16 22:00 08/15/16 21:27 Desyrel - PO 150 mg HS LEXI Administration Current Side Effect: Yes (seated in am) Lab tests ordered: No Lab tests reviewed: Yes Provider note:: Patient reports he feels somewhat sedated in am, the same time does not want to stop trazoodone "otherwise I can't slep", he maily spoke toady about his aftercare plans, feeling of anxiety predominated in this session, supportive therapy and emotional supports provided, will continue to monitor progress. Total face to face time:: 30 Mental Status Exam - Mental Status Exam Alert and Oriented to: Time, Place, Person Cognitive Function: Good Patient Appearance: Well Groomed Mood: Hopeful Affect: Appropriate, Mood Congruent Patient Behavior: Appropriate, Cooperative Speech Pattern: Clear, Appropriate Voice Loudness: Normal Thought Process: Intact, Goal Oriented Thought Disorder: Not Present Hallucinations: Denies Suicidal Ideation: Denies Homicidal Ideation: Denies Insight/Judgement: Fair Sleep: Fair Appetite: Fair Muscle strength/Tone: Normal Gait/Station: Normal Psychiatric Treatment Plan - Problem List (1) ADHD (attention deficit hyperactivity disorder) Current Visit: Yes (2) SHAHID (generalized anxiety disorder) Current Visit: Yes (3) Nicotine dependence Current Visit: Yes (4) ADD (attention deficit hyperactivity disorder, inattentive type) Current Visit: No (5) MDD (major depressive disorder) Current Visit: No (6) Retinitis pigmentosa Current Visit: No
[2016-08-16] MEDS: THIAMINE HCL 100 MG TABLET (FP) PO SCH (22:11)
[2016-08-16] MEDS: traZODone HCL 50 MG TABLET (FP) PO SCH (22:11)
[2016-08-17] MEDS: PRENATAL VITAMINS W/ FOLIC ACID TABLET (FP) PO SCH (09:46)
[2016-08-17] MEDS: ESCITALOPRAM OXALATE 20 MG TABLET (FP) PO SCH (09:46)
[2016-08-17] MEDS: traZODone HCL 50 MG TABLET (FP) PO SCH (21:59)
[2016-08-17] MEDS: THIAMINE HCL 100 MG TABLET (FP) PO SCH (22:00)
[2016-08-18] MEDS: PRENATAL VITAMINS W/ FOLIC ACID TABLET (FP) PO SCH (09:32)
[2016-08-18] MEDS: ESCITALOPRAM OXALATE 20 MG TABLET (FP) PO SCH (09:32)
[2016-08-18] MEDS: THIAMINE HCL 100 MG TABLET (FP) PO SCH (21:36)
[2016-08-18] MEDS: traZODone HCL 50 MG TABLET (FP) PO SCH (21:36)
[2016-08-19 07:20] VITALS: BP 127/74; PULSE 75; TEMP 97.2
[2016-08-19] MEDS: ESCITALOPRAM OXALATE 20 MG TABLET (FP) PO SCH (09:59)
[2016-08-19] MEDS: PRENATAL VITAMINS W/ FOLIC ACID TABLET (FP) PO SCH (09:59)
--- NOTE | 2016-08-19 10:23 | PN ---
Psychiatric Progress Note Vital Signs: Vital Signs Period Temp Pulse Resp BP Sys/Zamora Pulse Ox Last 24 Hr 97.2 F 75 18-18 127/74 Date of Session: 08/19/16 Chief Complaint:: discharge visit HPI: Patient has addressed alcohol, sedative dependence comorbid MDD, SHAHID, ADD. ROS: WNL Current Medications: Active Medications Generic Name Dose Route Start Last Admin Trade Name Freq PRN Reason Stop Dose Admin Acetaminophen 650 mg 08/01/16 18:12 Tylenol - PO Q4H PRN FEVER OR PAIN Al Hydroxide/Mg Hydroxide 30 ml 08/01/16 18:12 Mylanta Oral Suspension - PO Q6H PRN DYSPEPSIA Diphenhydramine HCl 50 mg 08/01/16 18:12 08/08/16 21:35 Benadryl - PO 50 mg HSMR1 PRN Administration FOR ITCHING Escitalopram Oxalate 20 mg 08/03/16 10:00 08/19/16 09:59 Lexapro - PO 20 mg DAILY LEXI Administration Eucalyptus/Menthol/Phenol/Sorbitol 1 each 08/01/16 18:12 08/05/16 14:50 Cepastat Lozenge - MM 1 each Q4H PRN Administration SORE THROAT Guaifenesin 10 ml 08/01/16 18:12 08/05/16 14:49 Robitussin Dm - PO 10 ml Q6H PRN Administration COUGH Hydroxyzine Pamoate 50 mg 08/01/16 18:12 Vistaril - PO Q4H PRN AGITATION Ibuprofen 400 mg 08/01/16 18:12 Motrin - PO Q6H PRN PAIN Loperamide HCl 4 mg 08/01/16 18:12 Imodium - PO Q6H PRN DIARRHEA Magnesium Hydroxide 30 ml 08/01/16 18:12 Milk Of Magnesia - PO DAILY PRN CONSTIPATION Nicotine 14 mg 08/01/16 18:12 Nicoderm Patch - TD DAILY PRN WITHDRAWAL(CONT SUBST) Nicotine Polacrilex 2 mg 08/01/16 18:12 Nicorette Gum - BUC Q2H PRN NICOTINE REPLACEMENT RX Multivit/Folic Acid/Iron 1 tab 08/02/16 10:00 08/19/16 09:59 Vitamins (Sjr) - PO 1 tab DAILY LEXI Administration Pseudoephedrine/Triprolidine 1 combo 08/01/16 18:12 Actifed - PO TID PRN NASAL CONGESTION Thiamine HCl 100 mg 08/01/16 22:00 08/18/16 21:36 Vitamin B1 - PO 100 mg HS LEXI Administration Trazodone HCl 150 mg 08/06/16 22:00 08/18/16 21:36 Desyrel - PO 150 mg HS LEXI Administration Current Side Effect: No Lab tests ordered: No Lab tests reviewed: Yes Provider note:: Patient has completed today his tretament and met his identified goals, he will continue at [facility] outpatient treatment program. He gained insights into his addiction and understands the negative impact alcohol, drugs on his major life areas. PAtient reports that he will continue Lexapro daily but Trazodone as needed, scripts provided, patient was encouraged to utilize all supports availbable to prevent relapses. Patient is stable for discharge Total face to face time:: 35 Mental Status Exam - Mental Status Exam Alert and Oriented to: Time, Place, Person Cognitive Function: Good Patient Appearance: Well Groomed Mood: Hopeful Affect: Appropriate, Mood Congruent Patient Behavior: Cooperative Speech Pattern: Clear, Appropriate Voice Loudness: Normal Thought Process: Intact, Goal Oriented Thought Disorder: Not Present Hallucinations: Denies Suicidal Ideation: Denies Homicidal Ideation: Denies Insight/Judgement: Fair Sleep: Fair Appetite: Fair Muscle strength/Tone: Normal Gait/Station: Normal Psychiatric Treatment Plan - Problem List (1) ADHD (attention deficit hyperactivity disorder) Current Visit: Yes (2) SHAHID (generalized anxiety disorder) Current Visit: Yes (3) Nicotine dependence Current Visit: Yes (4) ADD (attention deficit hyperactivity disorder, inattentive type) Current Visit: No (5) MDD (major depressive disorder) Current Visit: No (6) Retinitis pigmentosa Current Visit: No
== END 2016-08-19 11:00 | disposition home or self-care (01) | DRG 895 ==
LOC: YASAS 17:24 → Y5N 17:25
PROVIDERS: ADMIT Psychiatry & Neurology Psychiatry; ATTEND Psychiatry & Neurology Psychiatry
PROC: HZ42ZZZ Group Counseling for Substance Abuse Treatment, Cognitive-Behavioral (ICD-10-PCS; principal; 2016-08-01)
DX: F10.20 Alcohol dependence, uncomplicated (principal); F13.20 Sedative, hypnotic or anxiolytic dependence, uncomplicated; F33.9 Major depressive disorder, recurrent, unspecified; F17.210 Nicotine dependence, cigarettes, uncomplicated; F41.1 Generalized anxiety disorder; F90.9 Attention-deficit hyperactivity disorder, unspecified type; F98.8 Other specified behavioral and emotional disorders with onset usually occurring in childhood and adolescence; H35.52 Pigmentary retinal dystrophy

== ENCOUNTER 2019-04-04 08:45 | Inpatient (IN) | payer BC, OTHER ==
[2019-04-04 12:27] VITALS: BMI 23.7
--- NOTE | 2019-04-04 14:07 | HP ---
COWS - Scale Resting Pulse: 0= [place] 80 or Below Sweatin= Chills/Flushing Restless Observation: 0= Sits Still Pupil Size: 0= Normal to Room Light Bone or Joint Aches: 1= Mild Discomfort Runny Nose/ Eye Tearin= Nasal Congestion GI Upset > 30mins: 1= Stomach Cramp Tremor Observation: 0= None Yawning Observation: 1= 1-2x During Session Anxiety or Irritability: 1=Feels Anxious/Irritable Goose Flesh Skin: 0=Smooth Skin COWS Score: 6 CIWA Score Nausea/Vomitin-Mild Nausea/No Vomiting Muscle Tremors: 3 Anxiety: 2 Agitation: 3 Paroxysmal Sweats: 3 Orientation: 0-Oriented Tacttile Disturbances: 0-None Auditory Disturbances: 0-None Visual Disturbances: 0-None Headache: 0-None Present CIWA-Ar Total Score: 12 - Admission Criteria OASAS Guidelines: Admission for Medically Managed Detox: Requires at least one of the followin. CIWA greater than 12 2. Seizures within the past 24 hours 3. Delirium tremens within the past 24 hours 4. Hallucinations within the past 24 hours 5. Acute intervention needed for co occurring medical disorder 6. Acute intervention needed for co occurring psychiatric disorder 7. Severe withdrawal that cannot be handled at a lower level of care (continued vomiting, continued diarrhea, abnormal vital signs) requiring intravenous medication and/or fluids 8. Admission ROS [facility] Chief Complaint: here for alcohol and heroin detox Allergies/Adverse Reactions: Allergies Allergy/AdvReac Type Severity Reaction Status Date / Time pollen extracts Allergy Mild sneezing Verified 04/04/19 12:17 No Known Drug Allergies Allergy Verified 04/04/19 12:17 cats Allergy Mild Sneezing Uncoded 04/04/19 12:17 History of Present Illness: 24 yo with long h/o alcohol and new h/o heroin use. Bad eyesight- retinitis pigmentosa: r eyes worse than L. On no meds. Has PCP Heroin- started 4-5 months via a girlfriend, sniffing, 4-5 bags/day, no h/o OD, no narcan kit- advised re getting from pharmacy alcohol- age at 16 started drinking, everyday drinking started 5 years ago, 1/2 liter of vodka/day, long ago had seizures no DT's DUR- no recent meds, Utox- Mop, BZO, xanax from street - Ebola screening Have you traveled outside of the country in the last 21 days: No (N) Have you had contact with anyone from an Ebola affected area: No Do you have a fever: No - Review of Systems Constitutional: No Symptoms Reported EENT: reports: No Symptoms Reported Respiratory: reports: No Symptoms reported Cardiac: reports: No Symptoms Reported GI: reports: No Symptoms Reported : reports: No Symptoms Reported Musculoskeletal: reports: No Symptoms Reported Integumentary: reports: No Symptoms Reported Neuro: reports: No Symptoms reported Endocrine: reports: No Symptoms Reported Hematology: reports: No Symptoms Reported Psychiatric: reports: No Sypmtoms Reported Other Systems: Reviewed and Negative Patient History - Patient Medical History Hx Anemia: No Hx Asthma: No Hx Chronic Obstructive Pulmonary Disease (COPD): No Hx Cancer: No Hx Cardiac Disorders: No Hx Hypertension: No Hx Hypercholesterolemia: No Hx Pacemaker: No HX Cerebrovascular Accident: No Hx Seizures: No Hx Dementia: No Hx Diabetes: No Hx Gastrointestinal Disorders: No Hx Liver Disease: No Hx Genitourinary Disorders: No Hx Sexually Transmitted Disorders: No Hx Renal Disease (ESRD): No Hx Thyroid Disease: No Hx Human Immunodeficiency Virus (HIV): No Hx Hepatitis C: No Hx Depression: No Hx Suicide Attempt: No Hx Bipolar Disorder: No Hx Schizophrenia: No Other Medical History: retinitis pigmentosa- partially blind: 20/800 - Patient Surgical History Past Surgical History: Yes Hx Neurologic Surgery: No Hx Cataract Extraction: No Hx Cardiac Surgery: No Hx Lung Surgery: No Hx Breast Surgery: No Hx Breast Biopsy: No Hx Abdominal Surgery: No Hx Appendectomy: No Hx Cholecystectomy: No Hx Genitourinary Surgery: No Hx Section: No Hx Orthopedic Surgery: Yes (fx lt wrist 2014) Anesthesia Reaction: No - PPD History Date: 07/30/16 - Smoking Cessation Smoking history: Current some day smoker Have you smoked in the past 12 months: Yes Aproximately how many cigarettes per day: 20 Cigars Per Day: 0 Hx Chewing Tobacco Use: No Initiated information on smoking cessation: Yes 'Breaking Loose' booklet given: 04/04/19 - Substances abused Alcohol Substance route: Oral Frequency: Daily Amount used: 1 Liter of Vodka Age of first use: 16 Date of last use: 04/04/19 Heroin Substance route: Inhalation Frequency: Daily Amount used: 3-4 bags Age of first use: 24 Date of last use: 04/03/19 Family Disease History - Family Disease History Family Disease History: CA: Grandparent (LUNG), Other: Mother (ALCOHOL) Admission Physical Exam BHS - Vital Signs Vital Signs: Vital Signs - 24 hr 04/04/19 11:58 Temperature 97 F L Pulse Rate 73 Respiratory 18 Rate Blood Pressure 137/79 - Physical General Appearance: Yes: Within Normal Limits HEENTM: Yes: Within Normal Limits, EOMI Respiratory: Yes: Within Normal Limits, Chest Non-Tender Neck: Yes: Within Normal Limits Cardiology: Yes: Within Normal Limits Abdominal: Yes: Within Normal Limits Genitourinary: Yes: Within Normal Limits Back: Yes: Within Normal Limits Musculoskeletal: Yes: Within Normal Limits Extremities: Yes: Within Normal Limits Neurological: Yes: Within Normal Limits, analytical consultant II-XII NML intact Integumentary: Yes: Within Normal Limits Lymphatic: Yes: Within Normal Limits Breathalyzer - Breathalyzer Breathalyzer: 0 Urine Drug Screen - Test Device Lot number: [id number] Expiration date: 12/25/20 - Control Is test valid?: Yes - Results Drug screen NEGATIVE: No Urine drug screen results: MOP-Opiates, BZO-Benzodiazepines Inpatient Rehab Admission - Rehab Decision to Admit Inpatient rehab admission?: No
[2019-04-04] MEDS ORDERED: NICOTINE POLACRILEX 2 MG GUM BUC PRN (14:10)
[2019-04-04] MEDS ORDERED: IBUPROFEN 400 MG TABLET (FP) PO PRN (14:10)
[2019-04-04] MEDS ORDERED: MAGNESIUM HYDROX 2400MG/30ML ORAL SUSPENSION 30 ML CUP PO PRN (14:10)
[2019-04-04] MEDS ORDERED: hydrOXYzine PAMOATE 25 MG CAPSULE (FP) PO PRN (14:10)
[2019-04-04] MEDS ORDERED: BISMUTH SUBSALICYLATE 524 MG/30 ML UD PO PRN (14:10)
[2019-04-04] MEDS ORDERED: chlordiazePOXIDE HCL 25 MG CAPSULE PO ONE (14:10)
[2019-04-04] MEDS ORDERED: MAG HYDROX/AL HYDROX/SIMETH 30 ML UNIT-DOSE CUP PO PRN (14:10)
[2019-04-04] MEDS ORDERED: chlordiazePOXIDE HCL 25 MG CAPSULE PO PRN (14:10)
[2019-04-04] MEDS ORDERED: MENTHOL/PHENOL 1 EACH UD MM PRN (14:10)
[2019-04-04] MEDS ORDERED: MAGNESIUM CITRATE 300 ML BOTTLE PO PRN (14:10)
[2019-04-04] MEDS ORDERED: ACETAMINOPHEN 325 MG TABLET (FP) PO PRN ×2 (14:10)
[2019-04-04] MEDS ORDERED: cloNIDine HCL 0.1 MG TABLET PO PRN (14:10)
[2019-04-04] MEDS ORDERED: METHADONE HCL 10 MG TABLET (FOR DETOX USE ONLY) PO ONE (14:10)
[2019-04-04] MEDS ORDERED: NALOXONE HCL 0.4 MG/ML VIAL IM PRN (14:10)
[2019-04-04] MEDS: chlordiazePOXIDE HCL 25 MG CAPSULE PO SCH (22:13)
[2019-04-04] MEDS: MELATONIN 5 MG TABLETS PO PRN (22:13)
[2019-04-04] MEDS: THIAMINE HCL 100 MG TABLET (FP) PO SCH (22:13)
[2019-04-05] MEDS: chlordiazePOXIDE HCL 25 MG CAPSULE PO SCH ×4 (06:01→22:22)
[2019-04-05] MEDS ORDERED: METHADONE HCL 5 MG TABLET (FOR DETOX USE ONLY) PO ONE (10:00)
[2019-04-05] MEDS: PRENATAL VITAMINS W/ FOLIC ACID TABLET (FP) PO SCH (10:41)
[2019-04-05 12:46] LABS: HEMATOCRIT 40.6 % (35.4-49); MCH 31.7 pg (25.7-33.7); MCHC 34.5 g/dl (32.0-35.9); MEAN CELL VOLUME 91.9 fl (80-96); MEAN PLT VOLUME 7.4 fl (7.5-11.1); PLATELET COUNT 254 K/MM3 (134-434); RBC 4.41 M/mm3 (4.00-5.60); RDW 12.5 % (11.9-15.9); WHITE BLOOD COUNT 6.2 K/mm3 (4.0-10.0)
[2019-04-05] MEDS: METHOCARBAMOL 500 MG TABLET PO PRN ×2 (12:46→17:28)
--- NOTE | 2019-04-05 12:46 | PN ---
[facility] CIWA - CIWA Score Nausea/Vomitin-Mild Nausea/No Vomiting Muscle Tremors: 4-Moderate,w/Arms Extend Anxiety: 4-Mod. Anxious/Guarded Agitation: 3 Paroxysmal Sweats: 2 Orientation: 0-Oriented Tacttile Disturbances: 0-None Auditory Disturbances: 0-None Visual Disturbances: 0-None Headache: 0-None Present CIWA-Ar Total Score: 14 S COWS - Scale Resting Pulse: 0= [place] 80 or Below Sweatin= No chills or Flushing Restless Observation: 0= Sits Still Pupil Size: 0= Normal to Room Light Bone or Joint Aches: 2= Severe Diffuse Aches Runny Nose/ Eye Tearin= Nasal Congestion GI Upset > 30mins: 2= Nausea/Diarrhea Tremor Observation of Outstretched Hands: 2= Slight Tremor Visible Yawning Observation: 2= >3x During Session Anxiety or Irritability: 2=Irritable/Anxious Goose Flesh Skin: 3=Piloerection COWS Score: 14 [facility] Progress Note (SOAP) Subjective: doing well with librium and methadone detox regimen tolerate the medication well able to chew and swallow food without resting in between or fall asleep Objective: 04/05/19 12:46 Vital Signs Temperature 97.1 F L 04/05/19 09:18 Pulse Rate 60 04/05/19 09:18 Respiratory Rate 18 04/05/19 09:18 Blood Pressure 100/62 04/05/19 09:18 O2 Sat by Pulse Oximetry (%) 04/05/19 12:46 lab pending Assessment: 04/05/19 12:46 alcohol and opiate withdrawal sx Plan: continue librium and methadone detox regimen
--- NOTE | 2019-04-05 12:47 | CONSULT ---
[facility] Psychiatric Consult - Data Date of interview: 04/05/19 Admission source: [facility] Identifying data: Readmission to [facility] for this 24 y/o male self- referred for detoxification (heroin, alcohol, benzodiazepine). Interviewed on 3 . 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 Substance Abuse History: Discussed with the patient. Details are concordant with current [facility] report as follows : Smoking history: Current some day smoker. Have you smoked in the past 12 months: Yes. Aproximately how many cigarettes per day: 20. Cigars Per Day: 0. Hx Chewing Tobacco Use: No. Initiated information on smoking cessation: Yes. 'Breaking Loose' booklet given: . - Substances abused. Alcohol. Substance route: Oral. Frequency: Daily. Amount used: 1 Liter of Vodka. Age of first use: 16. Date of last use : 04/04/19. Heroin. Substance route: Inhalation. Frequency: Daily. Amount used: 3-4 bags. Age of first use: 24. Date of last use: 04/03/19 Medical History: Medical profile is significant for retinitis pigmentosa ( legally blind). Psychiatric History: No reported history of psychiatric hospitalizations. Patient has been diagnosed with ADD + MDD years ago. He used to be followed by a psychiatrist at the [facility]. Stopped taking his medications (lexapro 20 mg/day + adderall 40 mg/day). Dropped out of OPD care. Now this patient is relying on his primary care physician for his refills. Denies history of suicide attempts. Physical/Sexual Abuse/Trauma History: Patient denies. Additional Comment: Urine drug screen results: MOP-Opiates, BZO- Benzodiazepines. Noted. Mental Status Exam - Mental Status Exam Alert and Oriented to: Time, Place, Person Cognitive Function: Good Patient Appearance: Well Groomed (tall stature, stated age) Mood: Hopeful, Euthymic Affect: Appropriate, Normal Range Patient Behavior: Appropriate, Cooperative Speech Pattern: Clear, Excessive Voice Loudness: Normal Thought Process: Goal Oriented Hallucinations: Denies Suicidal Ideation: Denies Homicidal Ideation: Denies Insight/Judgement: Poor Sleep: Well Appetite: Good Muscle strength/Tone: Normal Gait/Station: Normal Psychiatric Findings - Problem List ([place] 1, 2,3) (1) Alcohol dependence with uncomplicated withdrawal Current Visit: Yes Status: Acute (2) Heroin abuse Current Visit: Yes Status: Chronic (3) Nicotine dependence Current Visit: Yes Status: Chronic (4) ADHD (attention deficit hyperactivity disorder) Current Visit: Yes Status: Chronic Comment: As per history. (5) SHAHID (generalized anxiety disorder) Current Visit: Yes Status: Chronic Comment: By history. (6) Non-compliance Current Visit: Yes Status: Chronic - Initial Treatment Plan Initial Treatment Plan: Psychoeducation. Sleep hygiene. Support. Detoxification. Resumed : lexapro 10 mg po daily. Side effects/benefits discussed with the patient. Mr Briceño gave verbal consent to MD. Tracey.
[2019-04-05 13:05] LABS: ALBUMIN 3.6 g/dl (3.4-5.0); BILIRUBIN,TOTAL 0.3 mg/dL (0.2-1); BLOOD UREA NITROGEN 10.4 mg/dL (7-18); CALCIUM 9.1 mg/dL (8.5-10.1); CREATININE 0.8 mg/dL (0.55-1.3); POTASSIUM 4.1 mmol/L (3.5-5.1); TOT PROT 6.4 g/dl (6.4-8.2)
[2019-04-05] MEDS: THIAMINE HCL 100 MG TABLET (FP) PO SCH (22:22)
[2019-04-05] MEDS: MELATONIN 5 MG TABLETS PO PRN (22:23)
[2019-04-06] MEDS: chlordiazePOXIDE HCL 25 MG CAPSULE PO SCH ×2 (05:19→10:58)
[2019-04-06 09:47] VITALS: BP 128/54; PULSE 77; TEMP 97
[2019-04-06] MEDS ORDERED: ESCITALOPRAM OXALATE 10 MG TABLET (FP) PO SCH (10:00)
[2019-04-06] MEDS ORDERED: METHADONE HCL 10 MG TABLET (FOR DETOX USE ONLY) PO ONE (10:00)
[2019-04-06] MEDS: PRENATAL VITAMINS W/ FOLIC ACID TABLET (FP) PO SCH (10:57)
--- NOTE | 2019-04-06 11:16 | PN ---
[facility] CIWA - CIWA Score Nausea/Vomitin-No Nausea/No Vomiting Muscle Tremors: 3 Anxiety: 3 Agitation: 3 Paroxysmal Sweats: 2 Orientation: 0-Oriented Tacttile Disturbances: 0-None Auditory Disturbances: 0-None Visual Disturbances: 0-None Headache: 0-None Present CIWA-Ar Total Score: 11 S COWS - Scale Resting Pulse: 0= [place] 80 or Below Sweatin= Chills/Flushing Restless Observation: 0= Sits Still Pupil Size: 0= Normal to Room Light Bone or Joint Aches: 1= Mild Discomfort Runny Nose/ Eye Tearin= Nasal Congestion GI Upset > 30mins: 0= None Tremor Observation of Outstretched Hands: 1= Tremor [place], Not Seen Yawning Observation: 1= 1-2x During Session Anxiety or Irritability: 1=Feels Anxious/Irritable Goose Flesh Skin: 0=Smooth Skin COWS Score: 6 [facility] Progress Note (SOAP) Subjective: body aches sweats mild shakes interrupted sleep agitation Objective: 04/06/19 11:15 Vital Signs Temperature 97.0 F L 04/06/19 09:46 Pulse Rate 77 04/06/19 09:46 Respiratory Rate 14 04/06/19 09:46 Blood Pressure 128/54 L 04/06/19 09:46 O2 Sat by Pulse Oximetry (%) Laboratory Tests 04/05/19 04/05/19 04/05/19 09:00 09:00 09:00 WBC 6.2 RBC 4.41 Hgb 14.0 Hct 40.6 MCV 91.9 MCH 31.7 MCHC 34.5 RDW 12.5 Plt Count 254 MPV 7.4 L Sodium 141 Potassium 4.1 Chloride 104 Carbon Dioxide 32 Anion Gap 5 L BUN 10.4 Creatinine 0.8 Est GFR (CKD-EPI)AfAm 144.91 Est GFR (CKD-EPI)NonAf 125.03 Random Glucose 80 Calcium 9.1 Total Bilirubin 0.3 AST 31 ALT 26 Alkaline Phosphatase 68 Total Protein 6.4 Albumin 3.6 RPR Titer Nonreactive labs noted aaox3 ambulating no acute distress Assessment: 04/06/19 11:15 withdrawal sx Plan: continue detox increase fluids
[2019-04-06] MEDS: METHOCARBAMOL 500 MG TABLET PO PRN (12:09)
--- NOTE | 2019-04-06 13:43 | PN ---
[facility] Progress Note Note: pt had arrived in withdrawals today pt continue to c/o of withdrawals s/s and aggressive symptomatic management attempted however, pt in spite of extensive motivational counseling regarding the risk of relapse, seizures, DT's and or loss, pt chose to sign out AMA.
--- NOTE | 2019-04-06 13:45 | DS ---
[facility] Detox Discharge Summary Admission Date: 04/04/19 - History Present History: Alcohol Dependence, Opioid Dependence, Sedative Dependence - Physical Exam Results Vital Signs: Vital Signs Temperature 97.0 F L 04/06/19 09:46 Pulse Rate 77 04/06/19 09:46 Respiratory Rate 14 04/06/19 09:46 Blood Pressure 128/54 L 04/06/19 09:46 O2 Sat by Pulse Oximetry (%) Pertinent Admission Physical Exam Findings: pt arrived in withdrawals Laboratory Tests 04/05/19 04/05/19 04/05/19 09:00 09:00 09:00 WBC 6.2 RBC 4.41 Hgb 14.0 Hct 40.6 MCV 91.9 MCH 31.7 MCHC 34.5 RDW 12.5 Plt Count 254 MPV 7.4 L Sodium 141 Potassium 4.1 Chloride 104 Carbon Dioxide 32 Anion Gap 5 L BUN 10.4 Creatinine 0.8 Est GFR (CKD-EPI)AfAm 144.91 Est GFR (CKD-EPI)NonAf 125.03 Random Glucose 80 Calcium 9.1 Total Bilirubin 0.3 AST 31 ALT 26 Alkaline Phosphatase 68 Total Protein 6.4 Albumin 3.6 RPR Titer Nonreactive pt chose to sign out AMA. - Medication Discharge Medications: Ambulatory Orders Dextroamphetamine/Amphetamine [Adderall 10 mg Tablet] 40 mg PO DAILY 07/28/16 Escitalopram Oxalate [Lexapro -] 20 mg PO DAILY #30 tablet 08/19/16 traZODone HCL [Desyrel -] 150 mg PO HS #30 tablet 08/19/16 - Diagnosis (1) Alcohol dependence with uncomplicated withdrawal Current Visit: Yes Status: Chronic (2) ADHD (attention deficit hyperactivity disorder) Current Visit: Yes Status: Chronic (3) SHAHID (generalized anxiety disorder) Current Visit: Yes Status: Chronic (4) Heroin abuse Current Visit: Yes Status: Chronic (5) Nicotine dependence Current Visit: Yes Status: Chronic Qualifiers: Nicotine product type: cigarettes Substance use status: uncomplicated Qualified Code(s): F17.210 - Nicotine dependence, cigarettes, uncomplicated (6) Sedative, hypnotic or anxiolytic dependence with withdrawal, uncomplicated Current Visit: No Status: Acute (7) ADD (attention deficit hyperactivity disorder, inattentive type) Current Visit: No Status: Chronic (8) MDD (major depressive disorder) Current Visit: No Status: Chronic (9) Retinitis pigmentosa Current Visit: No Status: Chronic - AMA Did Patient Leave Against Medical Advice: Yes
[2019-04-07] MEDS ORDERED: chlordiazePOXIDE HCL 10 MG CAPSULE PO PRN
[2019-04-07] MEDS ORDERED: chlordiazePOXIDE HCL 10 MG CAPSULE PO SCH (05:00)
[2019-04-07] MEDS ORDERED: METHADONE HCL 5 MG TABLET (FOR DETOX USE ONLY) PO ONE (06:00)
[2019-04-08] MEDS ORDERED: chlordiazePOXIDE HCL 10 MG CAPSULE PO SCH (05:00)
[2019-04-09] MEDS ORDERED: chlordiazePOXIDE HCL 10 MG CAPSULE PO ONE (05:00)
== END 2019-04-06 13:38 | disposition left against medical advice (07) | DRG 894 ==
LOC: YASAS 08:45 → Y3N 14:55 → Y6N 04-05 19:20
PROVIDERS: ADMIT Surgery; ATTEND Surgery
PROC: HZ2ZZZZ Detoxification Services for Substance Abuse Treatment (ICD-10-PCS; principal; 2019-04-03)
DX: F10.230 Alcohol dependence with withdrawal, uncomplicated (principal); F33.9 Major depressive disorder, recurrent, unspecified; F11.23 Opioid dependence with withdrawal; F13.230 Sedative, hypnotic or anxiolytic dependence with withdrawal, uncomplicated; F17.210 Nicotine dependence, cigarettes, uncomplicated; F41.1 Generalized anxiety disorder; F90.9 Attention-deficit hyperactivity disorder, unspecified type; H35.52 Pigmentary retinal dystrophy; Z91.19 Patient's noncompliance with other medical treatment and regimen
CPT/HCPCS: 36415; 80053; 85027; 86480; 86593